=== PATIENT | female | born 1930 | race Caucasian/White ===

== ENCOUNTER 2016-08-28 11:05 | Observation (INO) | payer OTHER ==
--- NOTE | 2016-08-28 11:35 | EDPHY ---
HPI/HX/ROS/PE/MDM Narrative: CHIEF COMPLAINT: Anemia. HPI: The patient is an 85-year-old female presenting for anemia. She had outpatient blood work performed at [facility] a few weeks ago that showed Hct of 24. This was confirmed with a CBC at [facility]. Her daughter brought her in today for transfusion on recommendation of her doctors. The patient denies acute symptoms but says she has been "gradually going downhill." REVIEW OF SYSTEMS: Aside from elements discussed in the HPI, a comprehensive 10-point review of systems was reviewed and is negative. PMH: Hypertension, bronchiectasis, breast cancer with lumpectomy, right lower lobe lobectomy, GERD, kidney stones, urethra surgery, hysterectomy, bladder suspension. SOCIAL HISTORY: Lives at [facility]. PHYSICAL EXAM: General: Patient is alert, in no acute distress. ENT: Eyes are normal to inspection. ENT inspection normal. Neck: Normal inspection. Full range of motion. Respiratory: No respiratory distress. Breath sounds normal bilaterally. Cardiovascular: Regular rate and rhythm. Strong peripheral pulses. Abdomen: The abdomen is nontender to palpation. There are no peritoneal signs. There are normal bowel sounds. Back: Normal to inspection. No tenderness to palpation. Skin: Normal color. No rash. Warm and dry. Extremities: Normal appearance. Full range of motion. Neuro: Oriented x3. Normal motor function. Normal sensory function. Portions of this note were transcribed by an ED scribe. I personally performed the history, physical exam, and medical decision making; and confirm the accuracy of the information in the transcribed note. ED Course: An IV was established and labs ordered. Patient will receive transfusion in the hospital. 1227: Consulted with [facility]. She accepts admission for Dr. Phelps. MDM: This patient presents for anemia, with request from her outpatient doctor for transfusion. We do not perform non-emergent transfusions in the ED, so patient will be admitted to hospitalist service. - Data Points Laboratory Results: Laboratory Results 08/28/16 12:00 08/28/16 08/28/16 08/28/16 12:00 12:00 12:00 WBC 6.85 10^3/uL 10^3/uL (3.80-9.50) RBC 3.78 10^6/uL L 10^6/uL (4.18-5.33) Hgb 7.3 g/dL L g/dL (12.6-16.3) Hct 24.9 % L % (38.0-47.0) MCV 65.9 fL L fL (81.5-99.8) MCH 19.3 pg L pg (27.9-34.1) MCHC 29.3 g/dL L g/dL (32.4-36.7) RDW 18.3 % H % (11.5-15.2) Plt Count 425 10^3/uL H 10^3/uL (150-400) MPV 9.7 fL fL (8.7-11.7) Neut % (Auto) 60.0 % % (39.3-74.2) Lymph % (Auto) 20.3 % % (15.0-45.0) [place] % (Auto) 13.7 % H % (4.5-13.0) Eos % (Auto) 5.0 % % (0.6-7.6) Baso % (Auto) 0.7 % % (0.3-1.7) Nucleat RBC Rel Count 0.0 % % (0.0-0.2) Absolute Neuts (auto) 4.11 10^3/uL 10^3/uL (1.70-6.50) Absolute Lymphs (auto) 1.39 10^3/uL 10^3/uL (1.00-3.00) Absolute Monos (auto) 0.94 10^3/uL H 10^3/uL (0.30-0.80) Absolute Eos (auto) 0.34 10^3/uL 10^3/uL (0.03-0.40) Absolute Basos (auto) 0.05 10^3/uL 10^3/uL (0.02-0.10) Absolute Nucleated RBC 0.00 10^3/uL 10^3/uL (0-0.01) Immature Gran % 0.3 % % (0.0-1.1) Immature Gran # 0.02 10^3/uL 10^3/uL (0.00-0.10) Platelet Estimate Pending Smear Review By Pending Sodium Pending Potassium Pending Chloride Pending Carbon Dioxide Pending Anion Gap Pending BUN Pending Creatinine Pending Estimated GFR Pending Glucose Pending Calcium Pending Patient ABO/Rh Pending Antibody Screen Pending General Time Seen by Provider: 08/28/16 11:34 Initial Vital Signs: Initial Vital Signs Temperature (C) 36.6 C 08/28/16 11:28 Heart Rate 66 08/28/16 11:28 Respiratory Rate 16 08/28/16 11:28 Blood Pressure 123/88 H 08/28/16 11:28 O2 Sat (%) 96 08/28/16 11:28 O2 Delivery Mode Nasal Cannula O2 (L/minute) 2 Allergies/Adverse Reactions: amlodipine besylate [From Norvasc] Allergy (Verified 08/28/16 11:31) celecoxib [From Celebrex] Allergy (Verified 08/28/16 11:31) gabapentin [From Neurontin] Allergy (Verified 08/28/16 11:31) venlafaxine HCl [From Effexor] Allergy (Verified 08/28/16 11:31) Home Medications: Medication Instructions Recorded Cholecalciferol Vit D3 [Vitamin D3 1,000 units PO DAILY 05/30/14 (*)] Herbals/Supplements -Info Only 1 ea PO DAILY 05/30/14 Omeprazole 20 mg PO DAILY PRN 05/30/14 Sertraline HCl [Zoloft 100mg (*)] 150 mg PO DAILY #0 05/30/14 Acetaminophen [Tylenol 325mg (*)] 650 mg PO Q4 PRN #0 tab 06/04/14 Losartan Potassium [Cozaar 50 mg 50 mg PO DAILY #0 tab 06/04/14 (*)] Ferrous Sulfate 325 mg PO BID #60 tablet 08/28/16 Departure - [facility] Clinical Impression: Anemia Qualifiers: Anemia type: unspecified type Qualified Code(s): D64.9 - Anemia, unspecified Condition: Fair Report Scribed for: [place] Report Scribed by: Jeffry Hylton Date of Report: 08/28/16 Time of Report: 12:09
[2016-08-28 12:11] LABS: % IMMATURE GRANULYOCYTES 0.3 % (0.0-1.1); ABSOLUTE IMMATURE GRANULOCYTES 0.02 10^3/uL (0.00-0.10); ADD DIFF? NO; ADD MORPH? YES; ADD SCAN? NO; ATYPICAL LYMPHOCYTE FLAG 20 (0-99); FRAGMENT RBC FLAG 60 (0-99); HEMATOCRIT 24.9 % (38.0-47.0); HEMOGLOBIN 7.3 g/dL (12.6-16.3); LEFT SHIFT FLG 0 (0-99); LIPEMIA HEMOLYSIS FLAG 70 (0-99); MEAN CELL HEMOGLOBIN 19.3 pg (27.9-34.1); MEAN CELL HEMOGLOBIN CONCENTR. 29.3 g/dL (32.4-36.7); MEAN PLATELET VOLUME 9.7 fL (8.7-11.7); PLATELET CLUMPS FLAG 0 (0-99); PLATELET COUNT 425 10^3/uL (150-400); RED BLOOD CELL COUNT 3.78 10^6/uL (4.18-5.33); RED CELL DISTRIBUTION WIDTH 18.3 % (11.5-15.2)
[2016-08-28 12:13] LABS: MEAN CELL VOLUME 65.9 fL (81.5-99.8)
[2016-08-28 12:30] LABS: ANION GAP 10 mEq/L (8-16); CALCIUM 9.1 mg/dL (8.5-10.4); CARBON DIOXIDE 27 mEq/l (22-31); CHLORIDE 101 mEq/L (97-110); CREATININE 0.9 mg/dL (0.6-1.0); GLOMERULAR FILTRATION RATE 59; GLUCOSE 81 mg/dL (70-100); POTASSIUM 4.4 mEq/L (3.5-5.2); SODIUM 138 mEq/L (134-144)
[2016-08-28 12:40] LABS: MICROCYTES 3+
[2016-08-28 12:41] LABS: ELLIPTOCYTES 1+; HYPOCHROMIA 3+; POLYCHROMASIA 1+
[2016-08-28 12:45] LABS: ACANTHOCYTES 1+; PLATELET ESTIMATE INCREASED (ADEQ)
[2016-08-28] MEDS ORDERED: ONDANSETRON 4 MG/2 ML VIAL IVP PRN (12:53)
[2016-08-28] MEDS ORDERED: ONDANSETRON DISINTEGRATING 4 MG TAB PO PRN (12:53)
[2016-08-28] MEDS ORDERED: ACETAMINOPHEN 325 MG TAB PO PRN (12:53)
[2016-08-28 13:50] LABS: % SATURATION 3 % (20-55); TOTAL IRON BINDING CAPACITY 459 ug/dL (260-490)
[2016-08-28] MEDS ORDERED: PANTOPRAZOLE SODIUM 40 MG TAB PO PRN (14:11)
[2016-08-28 14:16] LABS: FERRITIN - BCH 9.6 ng/mL (6.2-264.0)
--- NOTE | 2016-08-28 14:46 | GHP ---
DATE OF ADMISSION: 08/28/2016 CHIEF COMPLAINT: Weakness, microcytic anemia. HISTORY OF PRESENT ILLNESS: Patient is an 85-year-old female, with history of bronchiectasis, MAC i nfection, neuropathy presenting with progressive weakness. The patient is currently living at [facility] and is unable to get around as easily as before due to increased weakness and fatigue. She had her labs drawn July 25 showing anemia with hemoglobin 7.4, hematocrit 24. The patient was sen t here today from [facility] with these symptoms and requests for blood transfusion. Patient denies any recent falls, dizziness, shortness of breath or chest pain. It is more difficult to walk. Jeremie es hematochezia, melena, hematemesis. She has minimal hemoptysis secondary to underlying bronchiect asis. She does take 200 mg of Advil nightly. She had a colonoscopy 4 to 5 years ago and stopped be cause that was negative per patient's report. REVIEW OF SYSTEMS: I completed a 10-point review of systems, negative except as noted in the HPI. PAST MEDICAL HISTORY: 1. Hypertension. 2. Bronchiectasis. 3. MAC infection. 4. Breast cancer. 5. Peripheral neuropathy of unknown etiology. 6. Depression. 7. GERD. 8. Chronic hypoxemic respiratory failure on 2 L. PAST SURGICAL HISTORY: 1. Right lower lobe lobectomy. 2. Breast lumpectomy. 3. Hysterectomy. 4. Bladder suspension. SOCIAL HISTORY: Lives at [facility], is now nearly wheelchair-bound, but is able to ambulate with as sistance. Denies alcohol, tobacco or illicits. FAMILY HISTORY: Father with throat cancer. Mother with Alzheimer's. ALLERGIES: Amlodipine, Celebrex, gabapentin, Effexor. HOME MEDICATIONS: 1. Ibuprofen 200 mg daily. 2. Herbal supplements. 3. Vitamin D. 4. Tylenol. 5. Sertraline. 6. Omeprazole. 7. Losartan. PHYSICAL EXAMINATION: VITAL SIGNS: Temperature 36.6, blood pressure 175/85, heart rate 80s, respir ation 18, 95% on 2 L. GENERAL: Patient lying in bed, in no acute distress, pale, fatigued-appearin g. HEENT: PERRLA. EOMI. Conjunctival and palate pallor. CV: Regular rate and rhythm. No murmur s, gallops, or rubs. LUNGS: Clear to auscultation bilaterally. No wheezing. No crackles. ABDOME N: Soft, nontender, nondistended. Positive bowel sounds. : No suprapubic or CVA tenderness to palpation. MUSCULOSKELETAL: Moving all 4 extremities. SKIN: Warm, dry, no ecchymosis. NEURO: 2 through 12 intact. PSYCH: Alert and oriented x3. Very pleasant. LABORATORY DATA: WBC 6.85, hemoglobin 7.3, hematocrit 24, MCV 65, platelets 425. Prior hemoglobin 11, hematocrit 33 on June 06. Upon review of outside records, H and H 07/25 was 7 and 24 from [facility]. Sodium 134, potassium 4.4, chloride 101, carbon dioxide 27, anion gap 10, BUN 24, creat inine 0.9, glucose 81, calcium 9, iron is 14, TIBC is 459, iron saturation is 3, ferritin pending. ASSESSMENT: 1. Microcytic anemia: Suspect this has been ongoing for months. There has been no acute drop over the past month. Patient is symptomatic with increased weakness and inability to ambulate as easily . Will transfuse here. Iron studies do show iron deficiency. Will start iron replacement. Osorio brannon reports normal colonoscopy 4 to 5 years ago. I recommend that she repeat this. If anemia is pers istent as outpatient, can consider an EGD. There was no evidence of melena or acute blood loss now. Advised patient to discontinue Advil, will continue PPI. 2. Iron deficiency anemia: Start iron. 3. Chronic hypoxemic respiratory failure secondary to bronchiectasis, stable on home dose of 2 L. 4. Accelerated hypertension. Continue home medications. 5. Neuropathy, continue gabapentin. 6. History of breast cancer, status post lumpectomy. 7. Diet: Regular. 8. DVT prophylaxis. None. Patient is ambulatory and here only for transfusion. DISPOSITION: Patient warrants observation admission given symptomatic anemia warranting blood trans fusion. /[id number]/MODL
[2016-08-29 05:44] LABS: HEMATOCRIT 32.6 % (38.0-47.0); HEMOGLOBIN 10.3 g/dL (12.6-16.3); MEAN CELL HEMOGLOBIN 21.7 pg (27.9-34.1); MEAN CELL HEMOGLOBIN CONCENTR. 31.6 g/dL (32.4-36.7); RED BLOOD CELL COUNT 4.74 10^6/uL (4.18-5.33)
[2016-08-29 05:50] LABS: MEAN CELL VOLUME 68.8 fL (81.5-99.8)
[2016-08-29 08:30] VITALS: BP 161/70; PULSE 63; RESP 22; TEMP 98.2; O2SAT 95
[2016-08-29] MEDS ORDERED: SERTRALINE HCL 100 MG TAB PO SCH (09:00)
[2016-08-29] MEDS ORDERED: CHOLECALCIFEROL VIT D3 1,000 UNITS TAB PO SCH (09:00)
[2016-08-29] MEDS ORDERED: Herbals/Supplements -Info Only PO SCH (09:00)
[2016-08-29] MEDS ORDERED: LOSARTAN POTASSIUM 50 MG TAB PO SCH (09:00)
--- NOTE | 2016-08-29 13:00 | GDS ---
[f rep st] DISCHARGE SUMMARY DISCHARGE DIAGNOSES: 1. Symptomatic microcytic anemia. 2. Iron deficiency. 3. Chronic hypoxemic respiratory failure with bronchiectasis. 4. Hypertension. 5. Neuropathy. HOSPITAL COURSE: As stated by problem. Symptomatic iron deficiency anemia: The patient presented to the hospital with a hemoglobin of 7.3, that was apparently 7.4 in July. The patient was subsequently admitted where she received a un it of packed red blood cells. On the morning of discharge, she states that she feels well and would like to go home. She presented taking 200 mg of Advil nightly. Colonoscopy was offered, however, this was refused by the patient. PHYSICAL EXAM: VITAL SIGNS: On day of discharge, blood pressure 161/70, pulse 63, respiratory rate 22, O2 saturation 95% on 2 L. Temperature afebrile. GENERAL: No acute distress. HEART: S1, S2. LUNGS: Clear. ABDOMEN: Soft. EXTREMITIES: No edema. CURRENT LABS AND STUDIES: Hemoglobin 7.3 on admission, increased to 10.3 and hematocrit of 32.6 aft er 2 units of packed red blood cells. DISCHARGE MEDICATIONS: Please refer to discharge medication reconciliation in [facility] for full det ails. Below is a preliminary list. Home medications that were stopped: Ibuprofen. All other home medications were continued at her usual home dosages. DISCHARGE INSTRUCTIONS: The patient was discharged back to her home at [facility] she should follow up with her primary care provider for further evaluation of her anemia. /[id number]/MODL
== END 2016-08-29 11:55 | disposition home or self-care (01) ==
LOC: F1N 14:03
PROVIDERS: ADMIT Internal Medicine; ATTEND Family Medicine
PROC: 30233N1 Transfusion of Nonautologous Red Blood Cells into Peripheral Vein, Percutaneous Approach (ICD-10-PCS; principal; 2016-08-28)
DX: D50.9 Iron deficiency anemia, unspecified (principal); J96.11 Chronic respiratory failure with hypoxia; J47.9 Bronchiectasis, uncomplicated; I10 Essential (primary) hypertension; G62.9 Polyneuropathy, unspecified; K21.9 Gastro-esophageal reflux disease without esophagitis; F32.9 Major depressive disorder, single episode, unspecified; Z85.3 Personal history of malignant neoplasm of breast
CPT/HCPCS: 36430; 97116; 97162; 99285; G0378; G8978; G8979; G8980; P9016